=== PATIENT | female | born 1990 | race Caucasian/White ===

== ENCOUNTER 2017-08-25 13:12 | Emergency (ER) | payer SELFPAY ==
[~2017-08-25] VITALS: Ht 157.5 cm; Wt 63.5 kg
[~2017-08-25 13:12] MED LIST: ACHD5005 PO; AMT10T PO; BSP5T PO; CEPH500C PO; CODE-54 PO; IBP800T PO; NAPR-1071 PO; ONDAN4ODT SL; TRM50T PO
--- OUTSIDE RECORDS SUMMARY | 2017-08-25 13:34 | XMS REPORT | Referral Summary ---
Author Author [facility] Organization [facility] Address Unknown Phone Unavailable Care Team Providers Care Plateman Name Role Phone No PCP, Pt States PCP Encounter VC Date(s): 11/05/15 - 11/05/15 [facility] [address] [place], [place] [address] Discharge Diagnosis: Sprain of medial collateral ligament of left knee Discharge Diagnosis: Acute knee pain Discharge Disposition: 01-Home or Self Care Attending Physician: Elvin Squires MD Admitting Physician: Elvin Squires MD Vital Signs Most recent to 1 oldest [Reference Range]: Temperature Oral 37.1 degC [35.8-37.3 degC] (11/05/15 6:11 PM) Peripheral Pulse 90 bpm Rate [60-100 bpm] (11/05/15 7:17 PM) Respiratory Rate 16 br/min [14-20 br/min] (11/05/15 7:17 PM) Systolic Blood 109 mmHg Pressure [90-140 (11/05/15 7:17 PM) mmHg] Diastolic Blood 79 mmHg Pressure [60-90 (11/05/15 6:11 PM) mmHg] SpO2 99 % (11/05/15 7:17 PM) Problem List No Known Problems Allergies, Adverse Reactions, Alerts No Known Allergies Medications ibuprofen 600 mg oral tablet 600 mg 1 tabs, Oral, q8hr, # 30 tabs, 0 Refill(s) Start Date: 11/05/15 Status: Ordered ibuprofen 800 mg oral tablet 800 mg 1 tabs, Oral, TID, as needed for pain, # 30 tabs, 0 Refill(s) Start Date: 09/11/15 Status: Ordered [place] 5 mg-325 mg oral tablet 1 tabs, Oral, q6hr, as needed for pain, # 12 tabs, 0 Refill(s) Start Date: 11/05/15 Status: Ordered Results No data available for this section Immunizations No data available for this section Procedures No data available for this section Social History Social History Type Response Smoking Status Current every day smoker; Type: Cigarettes; Tobacco use per day: 1 Pack Assessment and Plan No data available for this section
--- OUTSIDE RECORDS SUMMARY | 2017-08-25 13:34 | XMS REPORT | Referral Summary ---
Author Author [facility] Organization [facility] Address Unknown Phone Unavailable Care Team Providers Care Web Development Instructor Name Role Phone No PCP, Pt States PCP Encounter VC Date(s): 09/12/15 - 09/12/[address] [facility] [address] [place], [place] [id number] Discharge Diagnosis: Acid reflux Discharge Diagnosis: Chest wall pain Discharge Disposition: 01-Home or Self Care Attending Physician: Elvin Squires MD Admitting Physician: Elvin Squires MD Vital Signs Most recent to 1 oldest [Reference Range]: Temperature Oral 36.0 degC [35.8-37.3 degC] (09/12/15 9:16 AM) Peripheral Pulse 74 bpm Rate [60-100 bpm] (09/12/15 11:14 AM) Respiratory Rate 16 br/min [14-20 br/min] (09/12/15 11:14 AM) Blood Pressure 105/68 mmHg [90-140/60-90 mmHg] (09/12/15 9:16 AM) SpO2 98 % (09/12/15 11:14 AM) Problem List No Known Problems Allergies, Adverse Reactions, Alerts No Known Allergies Medications ibuprofen 800 mg oral tablet 800 mg 1 tabs, Oral, TID, as needed for pain, # 30 tabs, 0 Refill(s) Start Date: 09/11/15 Status: Ordered penicillin V potassium 500 mg oral tablet 500 mg 1 tabs, Oral, QID, X 10 days, # 40 tabs, 0 Refill(s) Start Date: 09/11/15 Stop Date: 09/21/15 Status: Ordered Percocet 7.5/325 oral tablet 1 tabs, Oral, q6hr, # 24 tabs, 0 Refill(s) Start Date: 09/11/15 Stop Date: 09/14/15 Status: Ordered Results Chemistry Most recent to 1 oldest [Reference Range]: Screen, Negative Urine NPT (09/12/15 10:05 AM) Immunizations No data available for this section Procedures No data available for this section Social History No data available for this section Assessment and Plan No data available for this section
--- OUTSIDE RECORDS SUMMARY | 2017-08-25 13:34 | XMS REPORT | Referral Summary ---
Author Author [facility] Organization [facility] Address Unknown Phone Unavailable Care Team Providers Care Nanny Babysitter Name Role Phone No PCP, Pt States PCP Encounter VC Date(s): 11/05/15 - 11/05/15 [facility] [address] [place] [address] [place] Discharge Disposition: Attending Physician: Luis Manuel Villatoro MD Admitting Physician: Luis Manuel Villatoro MD Vital Signs Most recent to 1 oldest [Reference Range]: Temperature Oral 36.8 degC [35.8-37.3 degC] (11/05/15 2:13 PM) Peripheral Pulse 114 bpm Rate [60-100 bpm] *HI* (11/05/15 2:13 PM) Respiratory Rate 20 br/min [14-20 br/min] (11/05/15 2:13 PM) SpO2 98 % (11/05/15 2:13 PM) Problem List No Known Problems Allergies, Adverse Reactions, Alerts No Known Allergies Medications ibuprofen 600 mg oral tablet 600 mg 1 tabs, Oral, q8hr, # 30 tabs, 0 Refill(s) Start Date: 11/05/15 Status: Ordered ibuprofen 800 mg oral tablet 800 mg 1 tabs, Oral, TID, as needed for pain, # 30 tabs, 0 Refill(s) Start Date: 09/11/15 Status: Ordered [place] 5 mg-325 mg oral tablet 1 tabs, [...]
--- OUTSIDE RECORDS SUMMARY | 2017-08-25 13:34 | XMS REPORT | Referral Summary ---
Author Author [facility] Organization [facility] Address Unknown Phone Unavailable Care Team Providers Care Sccm Administrator Name Role Phone No PCP, Pt States PCP Encounter VC Date(s): 09/11/15 - 09/11/15 [facility] [address] [place] [address] [place] [phone] Discharge Diagnosis: Dental abscess Discharge Disposition: 01-Home or Self Care Attending Physician: Luis Manuel Villatoro MD Admitting Physician: Luis Manuel Villatoro MD Vital Signs Most recent to 1 oldest [Reference Range]: Temperature Oral 36.6 degC [35.8-37.3 degC] (09/11/15 1:10 PM) Peripheral Pulse 96 bpm Rate [60-100 bpm] (09/11/15 1:37 PM) Respiratory Rate 22 br/min [14-20 br/min] *HI* (09/11/15 1:37 PM) Blood Pressure 126/88 mmHg [90-140/60-90 mmHg] (09/11/15 1:37 PM) SpO2 98 % (09/11/15 1:37 PM) Problem List No Known Problems Allergies, [...] 09/11/15 Stop Date: 09/14/15 Status: Ordered Results No data available for this section Immunizations No data available for this section Procedures No data available for this section Social History No data available for this section Assessment and Plan No data available for this section
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
[2017-08-25] MEDS ORDERED: NAPR-1071 PO ×2 (14:04→14:07)
[2017-08-25] MEDS ORDERED: AMOX500C2 PO ×2 (14:04→14:07)
--- NOTE | 2017-08-25 14:04 | ED EENT ---
History of Present Illness General Stated Complaint: DENTAL PAIN Source: patient Exam Limitations: no limitations History of Present Illness Time seen by provider: 14:02 Initial Comments To ER with left lower dental pain for 2-3 days. Fevers or chills. She cannot see [facility] until next week she states. Timing/Duration: gradual Severity: moderate Location: dental Associated Symptoms: denies symptoms Allergies and Home Medications Allergies Coded Allergies: No Known Drug Allergies (Unverified , 07/25/10) Home Medications Naproxen 500 Mg Tablet, 500 MG PO BID PRN for PAIN, #20 Ref 0 Prescribed by: BI MARTIN on 04/29/162000 Naproxen 500 Mg Tablet, 500 MG PO BID PRN for PAIN, #20 Prescribed by: DONIS TELLO on 07/24/16 1641 Review of Systems Constitutional: see HPI Eyes: No Symptoms Reported Ears: No Symptoms Reported Nose: no symptoms reported Mouth: see HPI, pain Throat: no symptoms reported Respiratory: no symptoms reported Cardiovascular: no symptoms reported Musculoskeletal: no symptoms reported Past Unuuxcj-Tqhdgn-Sizvwy Hx Patient Social History Recent Foreign Travel: No Contact w/Someone Who Travel: No Recent Hopitalizations: No Seasonal Allergies Seasonal Allergies: No Reproductive System Hx Reproductive Disorders: No Psychosocial Behavioral Health Disorders: Anxiety Family Medical History Significant Family History: No Pertinent Family Hx Physical Exam General Appearance: WD/WN, no apparent distress Eyes: bilateral eye normal inspection, bilateral eye PERRL, bilateral eye EOMI Ears: bilateral ear auricle normal, bilateral ear canal normal, bilateral ear TM normal Mouth/Throat: normal mouth inspection, pharynx normal Neck: non-tender, full range of motion Cardiovascular: regular rate, rhythm Respiratory: normal breath sounds, no respiratory distress, no accessory muscle use Gastrointestinal: normal bowel sounds, non tender Neurologic/Psychiatric: alert, normal mood/affect, oriented x 3 Departure Impression Impression: Primary Impression: Pain, dental Disposition: 01 HOME, SELF-CARE Condition: Stable Departure-Patient Inst. Decision time for Depature: 14:03 Referrals: NO,LOCAL PHYSICIAN (PCP/Family) Primary Care Physician Patient Instructions: Dental Pain Add. Discharge Instructions: 1. Follow-up with the dentist next week 2. Antibiotics and pain medication as directed. You may also use over-the- counter Orajel to help with pain control. Scripts Naproxen (Naprosyn) 500 Mg Tablet 500 MG PO BID Y for PAIN-MODERATE TO SEVERE, #30 TAB Prov: DONIS TELLO APRN 08/25/17 Amoxicillin (Amoxicillin) 500 Mg Capsule 500 MG PO TID, #21 CAP Prov: DONIS TELLO APRN 08/25/17 DONIS TELLO APRN Aug 25, 2017 14:04
[2017-08-25 14:08] VITALS: BP 150/87
[2017-08-25] MEDS ORDERED: LIDOCAINE 2% VISCOUS 15 ML UDC PO ONE (14:15)
== END 2017-08-25 14:15 | disposition home or self-care (01) ==
LOC: EDUNIT# 13:12 → ER 13:13
DX: K08.89 Other specified disorders of teeth and supporting structures (principal); F41.9 Anxiety disorder, unspecified
CPT/HCPCS: 99282

== ENCOUNTER 2017-11-28 15:17 | Emergency (ER) | payer SELFPAY ==
[~2017-11-28] VITALS: Ht 157.5 cm; Wt 70.3 kg
[~2017-11-28 15:17] MED LIST changes: +AMOX500C2 PO
[2017-11-28] MEDS ORDERED: SULF1TAB35 PO (15:37)
[2017-11-28] MEDS ORDERED: HYDR-757 PO (15:37)
--- NOTE | 2017-11-28 15:37 | ED Integumentary General ---
General Chief Complaint: Skin/Wound Problems Stated Complaint: LEFT PINKY FINGER INFECTION Source: patient Exam Limitations: no limitations History of Present Illness Date Seen by Provider: Nov 28, 2017 Time Seen by Provider: 15:32 Initial Comments To ER per private vehicle with reports of a left fifth finger infection 5 days. No known injury. She states she was just seen [facility] this earlier today and was given a prescription was going about $30 and could not afford it and came here instead Timing/Duration: week, getting worse Severity: moderate Allergies and Home Medications Allergies Coded Allergies: No Known Drug Allergies (Unverified , 07/25/10) Home Medications Amoxicillin 500 Mg Capsule, 500 MG PO TID . Prescribed by: DONIS TELLO on 08/25/17 140 Naproxen 500 Mg Tablet, 500 MG PO BID PRN for PAIN Prescribed by: BI MARTIN on 04/29/162000 Naproxen 500 Mg Tablet, 500 MG PO BID PRN for PAIN Prescribed by: DONIS TELLO on 07/24/16 164 Naproxen 500 Mg Tablet, 500 MG PO BID PRN for PAIN-MODERATE TO SEVERE . Prescribed by: DONIS TELLO on 08/25/17 140 Patient Home Medication List Home Medication List Reviewed: Yes Constitutional: see HPI, No chills, No fever EENTM: see HPI Respiratory: no symptoms reported Cardiovascular: no symptoms reported Genitourinary: no symptoms reported Musculoskeletal: no symptoms reported Skin: no symptoms reported Past Ctodokj-Fahiok-Agurfr Hx Patient Social History Alcohol Use: Denies Use Recreational Drug Use: Yes (THC) Smoking Status: Current Everyday Smoker Type Used: Cigarettes 2nd Hand Smoke Exposure: Yes Recent Foreign Travel: No Contact w/Someone Who Travel: No Recent Hopitalizations: No Immunizations Up To Date Tetanus Booster (TDap): More than 5yrs Seasonal Allergies Seasonal Allergies: No Past Medical History Surgeries: Yes (DENTAL) Respiratory: No Cardiac: No Neurological: No Reproductive Disorders: No Genitourinary: No Gastrointestinal: No Musculoskeletal: No Endocrine: No HEENT: No Cancer: No Psychosocial: Yes Anxiety Integumentary: No Blood Disorders: No Family Medical History No Pertinent Family Hx Physical Exam Vital Signs Capillary Refill : General Appearance: WD/WN, no apparent distress HEENT: PERRL/EOMI, normal ENT inspection Extremities: normal range of motion, other (paronychia left fifth finger without cellulitis) Neurologic/Psychiatric: alert, normal mood/affect Skin: warm/dry Procedures/Interventions I&D : Blade Size: 11 Progress Anesthetized with a digital block using 5 mL of 2% lidocaine without epinephrine. A 1 cm incision was made over the area of maximal fluctuance and a large amount of purulent material expressed. Culture collected sent to lab. Departure Impression Primary Impression: Paronychia Disposition: 01 HOME, SELF-CARE Condition: Improved Departure-Patient Inst. Decision time for Depature: 15:34 Referrals: NO,LOCAL PHYSICIAN (PCP/Family) Primary Care Physician Patient Instructions: Paronychia (DC) Add. Discharge Instructions: 1. You may remove the dressing tomorrow. Wash this daily starting tomorrow with soap and water. Return to ER for any worsening redness or swelling. Pain medication and antibiotics as directed. All discharge instructions reviewed with patient and/or family. Voiced understanding. Scripts Hydrocodone/Acetaminophen (Gridley 5-325 Tablet) 1 Each Tablet 1 EACH PO Q4H Y for PAIN-MODERATE, #10 TAB Do not fill unless bactrim DS is also filled. Prov: DONIS TELLO APRN 11/28/17 Sulfamethoxazole/Trimethoprim (Bactrim Ds Tablet) 1 Each Tablet 1 EACH PO BID, #20 TAB Prov: DONIS TELLO APRN 11/28/17 DONIS TELLO APRN Nov 28, 2017 15:37
[2017-11-28 15:40] VITALS: BP 135/83
== END 2017-11-28 15:40 | disposition home or self-care (01) ==
LOC: EDUNIT# 15:17 → ER 15:19
DX: L03.012 Cellulitis of left finger (principal); F12.10 Cannabis abuse, uncomplicated; F17.210 Nicotine dependence, cigarettes, uncomplicated
CPT/HCPCS: 87070; 87077; 87186; 87205

== ENCOUNTER 2018-03-25 22:25 | Emergency (ER) | payer SELFPAY ==
[~2018-03-25 22:25] MED LIST changes: +HYDR-757 PO; +SULF1TAB35 PO
[2018-03-26] MEDS ORDERED: AMOX-358 PO (00:01)
[2018-03-26] MEDS ORDERED: MUPI1OIN6 TP (00:01)
== END 2018-03-25 22:31 | disposition left against medical advice (07) ==
LOC: EDUNIT# 22:25 → ER 22:27
DX: T14.90XA Injury, unspecified, initial encounter (principal); W54.0XXA Bitten by dog, initial encounter

== ENCOUNTER 2018-03-25 22:50 | Emergency (ER) | payer SELFPAY ==
[~2018-03-25] VITALS: Ht 157.5 cm; Wt 59.0 kg
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
[2018-03-25] MEDS ORDERED: AUGMENTIN 875 MG TAB (AMOXICILLIN/CLAVULANATE) PO SCH (23:45)
[2018-03-25] MEDS ORDERED: TETANUS,DIPTH,PERTUSS P/F (BOOSTRIX) 0.5 ML VIAL IM ONE (23:45)
[2018-03-25] MEDS ORDERED: MUPIROCIN 2% OINT 22 GM (BACTROBAN) TUBE ONE (23:52)
[2018-03-26] MEDS ORDERED: AMOX-358 PO (00:01)
[2018-03-26] MEDS ORDERED: MUPI1OIN6 TP (00:01)
[2018-03-26 00:10] LABS: AMPHETAMINE SCREEN, URINE POSITIVE (NEGATIVE); BARBITURATE SCREEN URINE NEGATIVE (NEGATIVE); BENZODIAZEPINES SCREEN URINE NEGATIVE (NEGATIVE); CANNABINOID SCREEN, URINE NEGATIVE (NEGATIVE); COCAINE SCREEN URINE NEGATIVE (NEGATIVE); METHADONE STAT NEGATIVE (NEGATIVE); METHAMPHETAMINE SCREEN URINE S NEGATIVE (NEGATIVE); OPIATE SCREEN URINE NEGATIVE (NEGATIVE); OXYCODONE STAT NEGATIVE (NEGATIVE); PROPOXYPHENE STAT NEGATIVE (NEGATIVE); TRICYCLIC ANTIDEPRESSANTS SCRE NEGATIVE (NEGATIVE)
[2018-03-26 00:13] VITALS: BP 115/68
[2018-03-26] MEDS ORDERED: MUPIROCIN 2% OINT 22 GM (BACTROBAN) TUBE TOP SCH (09:00)
== END 2018-03-26 00:13 | disposition home or self-care (01) ==
LOC: EDUNIT# 22:50 → ER 22:51
DX: S41.131A Puncture wound without foreign body of right upper arm, initial encounter (principal); S51.811A Laceration without foreign body of right forearm, initial encounter; S80.211A Abrasion, right knee, initial encounter; S61.236A Puncture wound without foreign body of right little finger without damage to nail, initial encounter; F41.9 Anxiety disorder, unspecified; F17.210 Nicotine dependence, cigarettes, uncomplicated; Z23 Encounter for immunization; W54.0XXA Bitten by dog, initial encounter
CPT/HCPCS: 80306; 84703; 90471; 90715; 99284

== ENCOUNTER 2018-07-24 15:03 | Emergency (ER) | payer SELFPAY ==
[~2018-07-24] VITALS: Ht 157.5 cm; Wt 65.8 kg
[~2018-07-24 15:03] MED LIST changes: +AMOX-358 PO; +HYDR-4226 PO; -HYDR-757 PO; +MUPI1OIN6 TP
[2018-07-24] MEDS ORDERED: CLINDAMYCIN 150 MG (CLEOCIN) CAP PO ONE (15:45)
[2018-07-24] MEDS ORDERED: AMOX500C2 PO (15:55)
--- NOTE | 2018-07-24 15:55 | ED EENT ---
History of Present Illness General Chief Complaint: Dental Problems/Pain Stated Complaint: TOOTHACHE Nursing Triage Note: AMBULATED TO ROOM 06 VIA AMB TO ROOM 06. COMPLAINS OF AN ABSCESSED TOOTH LEFT LOWER SIDE SINCE YESTERDAY. STATES THIS TOOTH HAS HAD AN ABSCESS BEFORE. Source: patient Exam Limitations: no limitations History of Present Illness Date Seen by Provider: Jul 24, 2018 Time Seen by Provider: 15:25 Initial Comments This 28-year-old young lady presents to the emergency room with complaint of a dental abscess on the lateral edge of the left lower teeth. She first noticed the symptoms last night. She states it has been draining some already. She took ibuprofen 800 mg and has been using Orajel. She has not taken any ibuprofen since pourer crane ladle. [facility] dental [facility] for her dental care but has not contacted the dentist yet about this issue. She has some severely eroded molars in the left lower mouth contributing to this problem. She denies fevers and is afebrile at present. Allergies and Home Medications Allergies Coded Allergies: No Known Drug Allergies (Unverified , 07/25/10) Home Medications Amoxicillin 500 Mg Capsule, 1,000 MG PO BID Prescribed by: CARMEN ZAMORA on 07/24/18 3095 Patient Home Medication List Home Medication List Reviewed: Yes Review of Systems Review of Systems Constitutional: no symptoms reported Eyes: No Symptoms Reported Ears: No Symptoms Reported Nose: no symptoms reported Mouth: see HPI Throat: no symptoms reported Respiratory: no symptoms reported Cardiovascular: no symptoms reported Gastrointestinal: no symptoms reported : No LMP: Jul 17, 2018 Musculoskeletal: no symptoms reported Skin: no symptoms reported Neurological: No Symptoms Reported Hematologic/Lymphatic: No Symptoms Reported Past Zexokcj-Ahfvbe-Mzgcpb Hx Past Med/Social Hx: Reviewed Nursing Past Med/Soc Hx Patient Social History Drug of Choice: NYIRJUANA Type Used: Cigarettes 2nd Hand Smoke Exposure: Yes Recent Foreign Travel: No Contact w/Someone Who Travel: No Recent Infectious Disease Expo: No Recent Hopitalizations: No Immunizations Up To Date Tetanus Booster (TDap): More than 5yrs Seasonal Allergies Seasonal Allergies: No Past Medical History Surgeries: Yes (DENTAL) Respiratory: No Cardiac: No Neurological: No Reproductive Disorders: No Genitourinary: No Gastrointestinal: No Musculoskeletal: No Endocrine: No HEENT: No Cancer: No Psychosocial: Yes Anxiety Integumentary: No Blood Disorders: No Family Medical History No Pertinent Family Hx Physical Exam Vital Signs Vital Signs - First Documented 07/24/18 15:17 Temp 98.0 Pulse 111 Resp 16 B/P (MAP) 126/91 (103) Pulse Ox 100 O2 Delivery Room Air Height, Weight, BMI Height: 5'2.00" Weight: 145lbs. oz. 65.333959rp; 29.26 BMI Method:Stated General Appearance: WD/WN, no apparent distress Eyes: bilateral eye normal inspection, bilateral eye PERRL, bilateral eye EOMI Ears: bilateral ear auricle normal, bilateral ear canal normal, bilateral ear TM red Nose: normal inspection Mouth/Throat: pharynx normal, dental tenderness, other (Severely eroded molars in the left lower mouth. Large abscess lateral to the left lower molars with a white head.) Neck: normal inspection Cardiovascular: no edema, no murmur, tachycardia Respiratory: lungs clear, normal breath sounds, no respiratory distress, no accessory muscle use Neurologic/Psychiatric: staffing associate II-XII nml as tested, no motor/sensory deficits, alert, normal mood/affect, oriented x 3 Skin: normal color, warm/dry Procedures/Interventions I&D : Blade Size: 11 Progress Topical anesthetic was used to numb the skin of the gingiva overlying the abscess. Hurricaine spray was applied to gauze pads to accomplish topical anesthesia. A number 11 scalpel was then used to make a subcentimeter incision over the center of the abscess. The large amount of thick purulent drainage was expressed. Suction with a Karimi catheter was provided to remove pus and debris. Wound was irrigated with 60 mL sterile water. A culture was collected. Patient tolerated the procedure well. Progress/Results/Core Measures Results/Orders My Orders Orders - CARMEN KAISER MD Wound Culture (07/24/18 15:34) Clindamycin Capsule (Cleocin Capsule) (07/24/18 15:45) Ibuprofen Tablet (Motrin Tablet) (07/24/18 16:00) Medications Given in ED Current Medications Medications Dose Ordered Sig/[place] Route Start Time Stop Time Status Last Admin Dose Admin Clindamycin HCl 450 mg ONCE ONCE PO 07/24/18 15:45 07/24/18 15:46 DC 07/24/18 15:53 450 MG Ibuprofen 800 mg ONCE ONCE PO 07/24/18 16:00 07/24/18 16:01 DC 07/24/18 16:02 800 MG Vital Signs/I&O 07/24/18 07/24/18 15:17 16:02 Temp 98.0 98.0 Pulse 111 111 Resp 16 16 B/P (MAP) 126/91 (103) 126/91 (103) Pulse Ox 100 100 O2 Delivery Room Air Blood Pressure Mean: 103 Progress Progress Note : Progress Note Incision and drainage of the abscess was performed. Wound culture was obtained. Patient was given clindamycin 450 mg and ibuprofen prior to dismissal. Departure Impression Primary Impression: Dental abscess Additional Impression: Encounter for incision and drainage procedure Disposition: HOME, SELF-CARE Condition: Improved Departure-Patient Inst. Decision time for Depature: 15:45 Referrals: [facility] [place] ([place]P/Family) Primary Care Physician Patient Instructions: Tooth Abscess (DC) Add. Discharge Instructions: Start your antibiotics immediately and complete the entire course. Please follow-up with your dentist as soon as possible. Call today to schedule an appointment. Extraction of the tooth remnant is necessary to prevent recurrence of abscess. Rinse your mouth with water often. [place] your teeth gently with a soft bristle brush 2 or 3 times daily. Use antiseptic mouthwash such as Listerine once or twice daily as tolerated. Return to care if you have worsening symptoms, especially if you develop fevers over 100. For pain use ibuprofen up to 800 mg every 8 hours as needed. Add Tylenol (acetaminophen) up to 1000 mg every 6 hours as needed for additional pain relief. All discharge instructions reviewed with patient and/or family. Voiced understanding. Scripts Amoxicillin (Amoxicillin) 500 Mg Capsule 1000 MG PO BID, #40 CAP Prov: CARMEN KAISER MD 07/24/18 Copy Copies To 1: DEMETRIA TAVAREZ JOSHUA T MD Jul 24, 2018 15:55
[2018-07-24] MEDS ORDERED: IBUPROFEN 800 MG (MOTRIN) TAB PO ONE (16:00)
[2018-07-24 16:02] VITALS: BP 126/91
== END 2018-07-24 16:02 | disposition home or self-care (01) ==
LOC: EDUNIT# 15:03 → ER 15:05
DX: K04.7 Periapical abscess without sinus (principal); F41.9 Anxiety disorder, unspecified; F12.10 Cannabis abuse, uncomplicated; Z77.22 Contact with and (suspected) exposure to environmental tobacco smoke (acute) (chronic)
CPT/HCPCS: 87070; 87205; 99283

== ENCOUNTER 2018-08-25 09:44 | Emergency (ER) | payer SELFPAY ==
[~2018-08-25] VITALS: Ht 157.5 cm; Wt 68.0 kg
--- NOTE | 2018-08-25 11:13 | ED Lower Extremity ---
General Chief Complaint: Lower Extremity Stated Complaint: R KNEE DISLOCATED Nursing Triage Note: PT AMBULATED TO ROOM 10 WITH COMPLANT OF RIGHT KNEE PAIN. PT STATE SHE TORE A LIGAMENT IN KNEE A FEW YEARS AGO, BUT DID NOT HAVE SURGERY. STATES SHE FEELS HER KNEE WILL DISLOCATE WHEN WALKING. Nursing Sepsis Screen: No Definite Risk Source: patient Exam Limitations: no limitations History of Present Illness Date Seen by Provider: Aug 25, 2018 Time Seen by Provider: 11:13 Initial Comments Patient is a 28-year-old female who presents to the emergency room with complaints of right knee pain. She reports that 5 years ago she tore a ligament in the knee and was supposed to have surgery but decided not to have the surgery. She reports that she has a feelings like her knee dislocating when she walks. She denies reinjury. She reports that she has an appointment on 08/29/18 with Sami Zapata for evaluation and possible referral to orthopedic surgeon but it is becoming difficult to ambulate and she would like a knee brace and crutches. Onset: other (5 years ago) Pain/Injury Location: right knee Method of Injury: unknown Modifying Factors: Improves With Immobilization; Worse With Movement Allergies and Home Medications Allergies Coded Allergies: No Known Drug Allergies (Unverified , 07/25/10) Home Medications Amoxicillin 500 Mg Capsule, 1,000 MG PO BID Prescribed by: CARMEN ZAMORA on 07/24/18 9897 Patient Home Medication List Home Medication List Reviewed: Yes Review of Systems Constitutional: see HPI; No chills, No fever Musculoskeletal: see HPI, joint pain (right knee pain) All Other Systems Reviewed Negative Unless Noted: Yes Past Ipresxd-Vwilyq-Zzsosy Hx Past Med/Social Hx: Reviewed Nursing Past Med/Soc Hx Patient Social History Alcohol Use: Denies Use Recreational Drug Use: No Drug of Choice: MAIRJUANA Smoking Status: Current Everyday Smoker Type Used: Cigarettes 2nd Hand Smoke Exposure: Yes Recent Foreign Travel: No Contact w/Someone Who Travel: No Recent Infectious Disease Expo: No Recent Hopitalizations: No Immunizations Up To Date Tetanus Booster (TDap): More than 5yrs Seasonal Allergies Seasonal Allergies: No Past Medical History Surgeries: Yes (DENTAL) Respiratory: No Cardiac: No Neurological: No Reproductive Disorders: No Genitourinary: No Gastrointestinal: No Musculoskeletal: No Endocrine: No HEENT: No Cancer: No Psychosocial: Yes Anxiety Integumentary: No Blood Disorders: No Family Medical History Reviewed Nursing Family Hx No Pertinent Family Hx Physical Exam Vital Signs Vital Signs - First Documented 08/25/18 10:24 Pulse 88 Resp 20 B/P (MAP) 132/102 (112) Pulse Ox 98 O2 Delivery Room Air Capillary Refill : Less Than 3 Seconds Height, Weight, BMI Height: 5'2.00" Weight: 150lbs. oz. 68.133659nc; 29.26 BMI Method:Stated General Appearance: WD/WN, no apparent distress HEENT: PERRL/EOMI, normal ENT inspection, TMs normal, pharynx normal Cardiovascular: normal peripheral pulses, regular rate, rhythm, no edema, no gallop, no JVD, no murmur Respiratory: chest non-tender, lungs clear, normal breath sounds, no respiratory distress, no accessory muscle use Knees: right knee normal range of motion (increased pain with range of motion) , right knee pain, right knee soft tissue tenderness Neurologic/Tendon: normal sensation, normal motor functions, normal tendon functions, responds to pain, no evidence tendon injury Neurologic/Psychiatric: alert, normal mood/affect, oriented x 3 Skin: normal color, warm/dry Normal capillary refill and distal pulses present. Progress/Results/Core Measures Results/Orders Vital Signs/I&O 08/25/18 10:24 Pulse 88 Resp 20 B/P (MAP) 132/102 (112) Pulse Ox 98 O2 Delivery Room Air Blood Pressure Mean: 112 Urine -Bedside: Negative Progress Progress Note : Time: 12:00 Progress Note I have seen and evaluated the patient. I've informed her of her imaging studies. I will be placing her in a knee immobilizer and crutches until she follows up. I will also refer her to Dr. Mendoza for orthopedic follow-up. She agrees with plans of care, plans were discharged, return precautions were given. Diagnostic Imaging Diagonstic Imaging: Xray Plain Films/CT/US/NM/MRI: knee Comments NAME: EDMUND NAVARRETE Fouzia MED REC#: [id number] PT STATUS: REG ER : 1990 PHYSICIAN: GRIFFIN PARRISH MD ADMIT DATE: 08/25/18/ER Draft Date of Exam:08/25/18 KNEE, RIGHT, 3 VIEWS EXAM: KNEE, RIGHT, 3 VIEWS. INDICATION: Right knee pain. Injury a few years ago. COMPARISON: None. FINDINGS: No fracture or malalignment. No suspicious osteoblastic or lytic lesions. Soft tissue shadows are unremarkable. IMPRESSION: Negative right knee radiographs. Dictated on workstation # [id number] Dict: 08/25/18 1155 Trans: 08/25/18 1156 [id number] Interpreted by: ALANA ENNIS MD Electronically signed by: Reviewed: Reviewed by Me Departure Impression Primary Impression: Knee pain Qualified Codes: M25.561 - Pain in right knee Disposition: 01 HOME, SELF-CARE Condition: Stable/Unchanged Departure-Patient Inst. Decision time for Depature: 12:01 Referrals: [facility] [place]) Primary Care Physician ILYA MENDOZA MD Patient Instructions: Chronic Knee Pain (DC) Add. Discharge Instructions: You may use ibuprofen and Tylenol as directed by the bottle for pain relief. Wear the knee immobilizer and use the crutches as needed for comfort until you follow up with your primary care provider on 08/29/18. I've also provided the contact information for Dr. Mendoza I believe that she should follow up with him as well for orthopedic evaluation. Call first thing 08/27/17 for an appointment time. Return back to the emergency room for any worsening symptoms or concerns as needed. All discharge instructions reviewed with patient and/or family. Voiced understanding. KONSTANTIN ALMENDAREZ Aug 25, 2018 11:13
--- NOTE | 2018-08-25 11:57 | Diagnostic Imaging Report ---
EXAM: KNEE, RIGHT, 3 VIEWS. INDICATION: Right knee pain. Injury a few years ago. COMPARISON: None. FINDINGS: No fracture or malalignment. No suspicious osteoblastic or lytic lesions. Soft tissue shadows are unremarkable. IMPRESSION: Negative right knee radiographs. Dictated by: Dictated on workstation # [id number]
[2018-08-25 12:33] VITALS: BP 129/91
== END 2018-08-25 12:33 | disposition home or self-care (01) ==
LOC: EDUNIT# 09:44 → ER 09:45
DX: M25.561 Pain in right knee (principal); F41.9 Anxiety disorder, unspecified; F12.10 Cannabis abuse, uncomplicated; F17.210 Nicotine dependence, cigarettes, uncomplicated
CPT/HCPCS: 73562; 84703

== ENCOUNTER 2018-09-15 02:28 | Emergency (ER) | payer SELFPAY ==
[~2018-09-15] VITALS: Ht 157.5 cm; Wt 68.0 kg
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
[2018-09-15] MEDS ORDERED: AUGMENTIN 500 MG TAB (AMOXICILLIN/CLAVULANATE) PO ONE (03:45)
[2018-09-15] MEDS ORDERED: TRIM/SULFAMETH 160/800 (SEPTRA DS) TAB PO ONE (03:45)
[2018-09-15] MEDS ORDERED: SULF1TAB35 PO (03:47)
[2018-09-15] MEDS ORDERED: AMOX-355 PO (03:47)
[2018-09-15 04:06] VITALS: BP 123/93
--- NOTE | 2018-09-15 04:10 | NUR ---
Dr. Guzman applied triple antibiotic ointment and bandaid to right thigh bite.
== END 2018-09-15 04:06 | disposition home or self-care (01) ==
LOC: EDUNIT# 02:28 → ER 02:32
DX: S71.111A Laceration without foreign body, right thigh, initial encounter (principal); F12.10 Cannabis abuse, uncomplicated; Z77.22 Contact with and (suspected) exposure to environmental tobacco smoke (acute) (chronic); W54.0XXA Bitten by dog, initial encounter
CPT/HCPCS: 99283

== ENCOUNTER 2019-02-21 21:48 | Inpatient (IN) | payer SELFPAY ==
[~2019-02-21] VITALS: Ht 157.5 cm; Wt 68.0 kg
[~2019-02-21 21:48] MED LIST changes: +AMOX-355 PO
[2019-02-21] MEDS ORDERED: ceFAZolin 2 GM IV Premixed 50 ML IV STA (21:56)
[2019-02-21] MEDS ORDERED: NS IV 1000 ML 1,000 ML IV ONE ×2 (21:56→23:31)
[2019-02-21] MEDS ORDERED: TETANUS,DIPTH,PERTUSS P/F (BOOSTRIX) 0.5 ML VIAL IM ONE (22:00)
[2019-02-21 22:06] LABS: HEMOGLOBIN 12.2 G/DL (11.5-16.0); MEAN PLATELET VOLUME 9.3 FL (7.4-10.4); RED CELL DISTRIBUTION WIDTH 12.6 % (10.0-14.5); WHITE BLOOD COUNT 11.2 10^3/uL (4.3-11.0)
[2019-02-21] MEDS ORDERED: NS 100 ML (IVPB) BAG IV ONE (22:15)
[2019-02-21] MEDS ORDERED: HOLD METFORMIN - RECEIVED CONTRAST 20 ML VIAL IV SCH (22:15)
[2019-02-21] MEDS ORDERED: IOHEXOL 350 MG/ML 100 ML (OMNIPAQUE 350) VIAL IV ONE (22:15)
[2019-02-21 22:26] LABS: ALANINE AMINOTRANSFERASE 13 U/L (0-55); ALBUMIN 3.9 GM/DL (3.2-4.5); ALKALINE PHOSPHATASE 58 U/L (40-136); BILIRUBIN,DIRECT 0.1 MG/DL (0.0-0.3); BILIRUBIN,INDIRECT 0.3 MG/DL; BILIRUBIN,TOTAL 0.4 MG/DL (0.1-1.0); BUN/CREATININE RATIO 12; CALCIUM 8.4 MG/DL (8.5-10.1); CARBON DIOXIDE 17 MMOL/L (21-32); CHLORIDE 110 MMOL/L (98-107); CREATININE SERUM 1.07 MG/DL (0.60-1.30); GFR ESTIMATED > 60; GLUCOSE 110 MG/DL (70-105); POTASSIUM 4.9 MMOL/L (3.6-5.0); SODIUM 140 MMOL/L (135-145); TOTAL PROTEIN 6.4 GM/DL (6.4-8.2)
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
[2019-02-21] MEDS ORDERED: ceFAZolin INJECTION 2,000 MG ONE (22:35)
[2019-02-21] MEDS ORDERED: NS (IVPB) 50 ML ONE (22:35)
[2019-02-21] MEDS ORDERED: fentaNYL INJECTION 100 MCG/2 ML AMP IVP STA (23:10)
--- NOTE | 2019-02-21 23:14 | NUR ---
C-collar cleared by Dr. Hunter @ [id number]
[2019-02-21] MEDS ORDERED: LIDOCAINE/EPI 2% 1:100,00 (XYLOCAINE) 20 ML VIAL INJ ONE ×3 (23:30)
[2019-02-21] MEDS ORDERED: fentaNYL INJECTION 100 MCG/2 ML AMP IVP ONE (23:45)
[2019-02-21] MEDS ORDERED: morphine INJ 10 MG/ML 1ML (SYR OR VIAL) IVP STA (23:53)
[2019-02-22] VITALS (23 sets, daily range): BP systolic 100–143; BP diastolic 59–120
--- NOTE | 2019-02-22 00:45 | NUR ---
Grossly contaminated material to lt complex laceration irrigated with approx x200ml ns and chlorhexidine soultion. Residual foreign material embedded in tissue. Wet to dry dressing applied and covered with kerlix gauze. Pt able to move extremity and dorsiflex lt foot. Distal pulses palpable and cap refil <3 seconds.
[2019-02-22 01:57] LABS: BILIRUBIN,URINE NEGATIVE (NEGATIVE); CLARITY,URINE CLEAR; COLOR,URINE YELLOW; GLUCOSE, URINE (UA) NEGATIVE (NEGATIVE); KETONES,URINE 2+ (NEGATIVE); LEUKOCYTE ESTERASE ,URINE NEGATIVE (NEGATIVE); NITRITE,URINE NEGATIVE (NEGATIVE); PH,URINE 6.5 (5-9); PROTEIN,URINE 1+ (NEGATIVE); UROBILINOGEN,URINE NORMAL (NORMAL)
[2019-02-22 02:06] LABS: BACTERIA,URINE NEGATIVE /HPF
[2019-02-22 02:10] LABS: AMPHETAMINE SCREEN, URINE POSITIVE (NEGATIVE); BARBITURATE SCREEN URINE NEGATIVE (NEGATIVE); BENZODIAZEPINES SCREEN URINE NEGATIVE (NEGATIVE); CANNABINOID SCREEN, URINE POSITIVE (NEGATIVE); COCAINE SCREEN URINE NEGATIVE (NEGATIVE); METHADONE STAT NEGATIVE (NEGATIVE); METHAMPHETAMINE SCREEN URINE S POSITIVE (NEGATIVE); OPIATE SCREEN URINE POSITIVE (NEGATIVE); OXYCODONE STAT NEGATIVE (NEGATIVE); PROPOXYPHENE STAT NEGATIVE (NEGATIVE); TRICYCLIC ANTIDEPRESSANTS SCRE NEGATIVE (NEGATIVE)
[2019-02-22] MEDS ORDERED: fentaNYL INJECTION 100 MCG/2 ML AMP ONE ×4 (02:38→12:29)
[2019-02-22] MEDS: fentaNYL INJECTION 100 MCG/2 ML AMP IV PRN ×2 (02:45→08:31)
[2019-02-22] MEDS ORDERED: NS (IVPB) 50 ML ONE (05:47)
[2019-02-22] MEDS ORDERED: ceFAZolin INJECTION 2,000 MG ONE (05:47)
[2019-02-22] MEDS: ceFAZolin 2 GM/NS 50 ML IVPB IV SCH ×3 (06:02→15:59)
[2019-02-22] MEDS: D5 1/2 NS W/KCL 20 MEQ/L 1,000 ML IV SCH ×3 (06:02→23:09)
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
--- NOTE | 2019-02-22 06:59 | Diagnostic Imaging Report ---
Indication: Left leg injury pain COMPARISON: None. FINDINGS: 4 views left tibia-fibula demonstrates a large soft tissue injury adjacent to the distal tibia. There is no underlying fracture or dislocation. No foreign body. IMPRESSION: No fracture or dislocation. Dictated by: Dictated on workstation # [id number]
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
--- NOTE | 2019-02-22 07:42 | Diagnostic Imaging Report ---
INDICATION: Left foot injury, pain COMPARISON: None. FINDINGS: 2 views left foot demonstrates no fracture or dislocation. Articular surfaces are normal. No radiopaque foreign body. IMPRESSION: Negative left foot. Dictated by: Dictated on workstation # [id number]
--- NOTE | 2019-02-22 09:15 | NUR ---
Dr. Stein at bedside at this time. Information provided to family and pt at bedside regarding surgical procedure and debridement of left lower extremity. Mother at bedside at this time. VSS. Will obtain consent for surgical procedure. Pt currently awaiting surgery at this time.
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
[2019-02-22] MEDS ORDERED: morphine INJ 4 MG/ML 1 ML (VIAL/SYRINGE) IVP PRN (09:30)
[2019-02-22] MEDS ORDERED: morphine INJ 4 MG/ML 1 ML (VIAL/SYRINGE) ONE (09:31)
[2019-02-22] MEDS ORDERED: ceFAZolin INJECTION 1,000 MG ONE (09:32)
--- NOTE | 2019-02-22 09:58 | NUR ---
Report called to JOSE Perry who will assume pt care on arrival to 4th floor room 419. Pt currently awaiting surgery at this time and will report to new room post op. Will continue to monitor pt until OR crew arrives.
[2019-02-22] MEDS ORDERED: HYDROmorphone 2 MG/ML VIAL (DILAUDID) ONE (11:25)
[2019-02-22] MEDS ORDERED: morphine INJ 10 MG/ML 1ML (SYR OR VIAL) ONE (11:25)
[2019-02-22] MEDS ORDERED: PROMETHAZINE INJ 25 MG/ML (PHENERGAN) AMP ONE (11:26)
[2019-02-22] MEDS ORDERED: MIDAZOLAM 2 MG/2 ML (VERSED) VIAL ONE (12:29)
--- NOTE | 2019-02-22 12:31 | NUR ---
Pt taken to OR accompanied by OR staff at this time.
[2019-02-22] MEDS: LACTATED RINGERS 1,000 ML IV PRN ×2 (12:37→13:15)
[2019-02-22] MEDS ORDERED: SEVOFLURANE (ULTANE) 15 ML INHAL SOLN ONE (13:14)
[2019-02-22] MEDS ORDERED: ONDANSETRON 4 MG/2 ML (SDV) Z0FRAN ONE (13:15)
[2019-02-22] MEDS ORDERED: LIDOCAINE PF 2% 5 ML (XYLOCAINE) VIAL ONE (13:15)
[2019-02-22] MEDS ORDERED: DEXAMETHASONE 10 MG/ML (DECADRON) 1 ML VIAL ONE (13:15)
[2019-02-22] MEDS ORDERED: proPOfol 200 MG/20 ML (DIPRIVAN) VIAL IV ONE (13:15)
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
[2019-02-22] MEDS ORDERED: ONDANSETRON 4 MG/2 ML (SDV) Z0FRAN IVP PRN (13:45)
[2019-02-22] MEDS ORDERED: HYDROmorphone 2 MG/ML VIAL (DILAUDID) IV ONE (13:45)
[2019-02-22] MEDS ORDERED: PROMETHAZINE INJ 25 MG/ML (PHENERGAN) AMP IVP ONE (13:45)
[2019-02-22] MEDS ORDERED: morphine INJ 10 MG/ML 1ML (SYR OR VIAL) IVP ONE (13:45)
--- NOTE | 2019-02-22 14:30 | NUR ---
Pt to room 419 from PACU, pt very sleepy. L) lower leg had dressing that is c/d/i. Report received from Smitha GARCIA
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
[2019-02-22] MEDS: HYDROcodone/APAP 10 MG/325 MG (LORTAB) TAB PO PRN (21:14)
[2019-02-23] MEDS: D5 1/2 NS W/KCL 20 MEQ/L 1,000 ML IV SCH ×2 (00:30→05:51)
[2019-02-23 00:59] VITALS: BP 102/66
[2019-02-23 01:05] VITALS: BP 130/66
[2019-02-23] MEDS: HYDROcodone/APAP 10 MG/325 MG (LORTAB) TAB PO PRN ×3 (04:33→13:08)
[2019-02-23 05:35] LABS: BASOPHILS % (AUTO) 0 % (0-10); EOSINOPHILS # (AUTO) 0.1 10^3/uL (0.0-0.3); EOSINOPHILS % (AUTO) 0 % (0-10); HEMATOCRIT 32 % (35-52); HEMOGLOBIN 10.7 G/DL (11.5-16.0); LYMPHOCYTES # (AUTO) 1.5 X 10^3 (1.0-4.0); LYMPHOCYTES % (AUTO) 8 % (12-44); MEAN CORPUSCULAR HEMOGLOBIN 33 PG (25-34); MEAN CORPUSCULAR HGB CONC 34 G/DL (32-36); MEAN CORPUSCULAR VOLUME 97 FL (80-99); MEAN PLATELET VOLUME 10.1 FL (7.4-10.4); MONOCYTES # (AUTO) 1.4 X 10^3 (0.0-1.0); MONOCYTES % (AUTO) 8 % (0-12); NEUTROPHILS # (AUTO) 15.2 X 10^3 (1.8-7.8); NEUTROPHILS % (AUTO) 84 % (42-75); PLATELET COUNT 272 10^3/uL (130-400); RED CELL DISTRIBUTION WIDTH 12.3 % (10.0-14.5); WHITE BLOOD COUNT 18.2 10^3/uL (4.3-11.0)
[2019-02-23 05:56] LABS: ALANINE AMINOTRANSFERASE 8 U/L (0-55); ALBUMIN 3.2 GM/DL (3.2-4.5); ALKALINE PHOSPHATASE 53 U/L (40-136); BILIRUBIN,TOTAL 0.2 MG/DL (0.1-1.0); BUN/CREATININE RATIO 10; CALCIUM 8.1 MG/DL (8.5-10.1); CARBON DIOXIDE 22 MMOL/L (21-32); CHLORIDE 109 MMOL/L (98-107); CREATININE SERUM 0.78 MG/DL (0.60-1.30); GFR ESTIMATED > 60; GLUCOSE 136 MG/DL (70-105); MAGNESIUM 1.9 MG/DL (1.8-2.4); PHOSPHORUS 2.5 MG/DL (2.3-4.7); POTASSIUM 4.4 MMOL/L (3.6-5.0); SODIUM 137 MMOL/L (135-145); TOTAL PROTEIN 5.3 GM/DL (6.4-8.2)
[2019-02-23] MEDS ORDERED: IBUP-2055 PO (12:18)
--- NOTE | 2019-02-23 12:19 | Anesthesia-General Post-Op ---
General Patient Condition Mental Status/LOC: Same as Preop Cardiovascular: Satisfactory Nausea/Vomiting: Absent Respiratory: Satisfactory Pain: Controlled Complications: Absent Post Op Complications Complications None Follow Up Care/Instructions Patient Instructions None needed. Anesthesia/Patient Condition Patient Condition Patient is doing well, no complaints, stable vital signs, no apparent adverse anesthesia problems. No complications reported per nursing. MIKE OJEDA CRNA Feb 23, 2019 12:19
--- NOTE | 2019-02-23 12:43 | NUR ---
SPOKE WITH PATIENT, WELL LOOKING AT THE EXTERNAL MED HISTORY. SHE SAYS THERE ARE NO PRESCRIPTION MEDICATIONS SHE TAKES (SAMPLES, OR MAILORDER) OTC MEDICATIONS: IBUPROFEN 800MG TID PRN
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
[2019-02-23] MEDS ORDERED: HYDR-3820 PO (13:10)
--- NOTE | 2019-02-23 13:12 | Discharge Inst-Surgical ---
Discharge Inst-Surgical Depart Medication/Instructions New, Converted or Re-Newed RX: RX Given to Pt/Family Patient Instructions Follow up Appt: Make appointment for 1 week. [phone] Instructions: No strenuous activity. May shower in 24 hours, no tub bath or soaking. Use incentive spirometer at home as directed. No Smoking Skin/Wound Care: Please come in to office to have bandages changed Saturday and Saturday. You need to leave the ramon in place; will be removed in 10-14 days. Symptoms to Report: Appetite Changes, Extremity Discoloration, Numbness/Tingling, Swelling Increased, Bleeding Excessive, Eyesight Changes, Pain Increased, Urine Color Change, Constipation(Persistent), Fever over 101 degree F, Pain/Pressure in chest, Urinating Difficulty, Cough Up/Vomit Blood, Heart Beat Irreg/Pounding, Pain/Pressure in jaw, Cramps in feet or legs, Lightheadedness, Pain/Pressure in shoulder, Diarrhea(Persistent), Memory Changes Suddenly, Questions/Concerns, Weight gain consecutive days, Dizziness/Fainting, Nausea/Vomiting, Shortness of Breath, Weight gain over 2 pounds If questions or concerns contact your physician Or seek help at emergency department. Activity Activity as Tolerated: Yes Walking Assistive Device: Crutches Driving Instructions: No Driving/Refer to Dr. Koch Discharge Diet: No Restrictions Diet After 24 Hours: Clear Liquid if Nauseous If Any Problems/Questions/Issu: Contact Your Physician, Go to Emergency Room Skin/Wound Care Infection Signs and Symptoms: Increased Redness, Foul Odor of Wound, Increased Drainage, Skin Itchy or Has a Rash, Increased Swelling, Temperature Above 101 F Bathing Instructions: Shower Stitches/[place]ermabond Dis: Care of JOSE Darnell DO Feb 23, 2019 13:12
== END 2019-02-23 14:00 | disposition home or self-care (01) | DRG 909 ==
LOC: EDUNIT# 21:48 → ER 21:49 → ICU 21:50 → UNDOADMOB 23:45 → OBSVTOIN 02-22 12:22 → INTOOBSV 02-22 12:22 → 4TH 02-22 12:31 → ICU 02-22 12:31 → UNDODISIN 02-23 14:00
PROVIDERS: ADMIT Surgery; ATTEND Surgery
PROC: 0JDP0ZZ Extraction of Left Lower Leg Subcutaneous Tissue and Fascia, Open Approach (ICD-10-PCS; 2019-02-22)
PROC: 0JQ00ZZ Repair Scalp Subcutaneous Tissue and Fascia, Open Approach (ICD-10-PCS; 2019-02-22)
PROC: 0JQP0ZZ Repair Left Lower Leg Subcutaneous Tissue and Fascia, Open Approach (ICD-10-PCS; principal; 2019-02-22 12:37)
DX: S81.822A Laceration with foreign body, left lower leg, initial encounter (principal); S01.01XA Laceration without foreign body of scalp, initial encounter; F17.210 Nicotine dependence, cigarettes, uncomplicated; F15.90 Other stimulant use, unspecified, uncomplicated; F12.90 Cannabis use, unspecified, uncomplicated; K02.9 Dental caries, unspecified; V13.4XXA Pedal cycle driver injured in collision with car, pick-up truck or van in traffic accident, initial encounter
CPT/HCPCS: 36415; 70450; 71045; 71260; 72125; 72128; 72131; 72170; 73590; 73630; 74177; 80048; 80053; 80076; 80306; 80320; 81000; 83735; 84100; 84703; 85025; 85027; 86850; 86900; 86901; 87081; G0378

== ENCOUNTER 2019-03-02 15:56 | Emergency (ER) | payer OTHER ==
[~2019-03-02 15:56] MED LIST changes: +HYDR-3820 PO; +IBUP-2055 PO
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
[2019-03-02 16:14] VITALS: BP 0/0
== END 2019-03-02 16:14 | disposition home or self-care (01) ==
LOC: EDUNIT# 15:56 → ER 15:59
DX: S01.91XD Laceration without foreign body of unspecified part of head, subsequent encounter (principal); R40.2412 Glasgow coma scale score 13-15, at arrival to emergency department; W54.0XXD Bitten by dog, subsequent encounter

== ENCOUNTER 2019-03-05 15:58 | Inpatient (IN) | payer OTHER ==
[~2019-03-05] VITALS: Ht 157.5 cm; Wt 63.7 kg
--- NOTE | 2019-03-05 16:10 | NUR ---
old dressing removed from left lower leg. [place] intact to wound. There is purelent drainage present. Wound bed is eschar with foul smell present.
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
[2019-03-05] MEDS ORDERED: fentaNYL INJECTION 100 MCG/2 ML AMP IVP ONE (16:30)
--- NOTE | 2019-03-05 16:35 | NUR ---
23 ramon removed from patient's left lower leg by Kade Webb NP.
[2019-03-05 16:37] LABS: BASOPHILS # (AUTO) 0.1 10^3/uL (0.0-0.1); BASOPHILS % (AUTO) 1 % (0-10); EOSINOPHILS # (AUTO) 0.3 10^3/uL (0.0-0.3); EOSINOPHILS % (AUTO) 3 % (0-10); HEMATOCRIT 34 % (35-52); HEMOGLOBIN 11.3 G/DL (11.5-16.0); LYMPHOCYTES # (AUTO) 2.3 X 10^3 (1.0-4.0); LYMPHOCYTES % (AUTO) 25 % (12-44); MEAN CORPUSCULAR HEMOGLOBIN 32 PG (25-34); MEAN CORPUSCULAR HGB CONC 34 G/DL (32-36); MEAN CORPUSCULAR VOLUME 95 FL (80-99); MEAN PLATELET VOLUME 8.6 FL (7.4-10.4); MONOCYTES # (AUTO) 0.6 X 10^3 (0.0-1.0); MONOCYTES % (AUTO) 6 % (0-12); NEUTROPHILS # (AUTO) 6.1 X 10^3 (1.8-7.8); NEUTROPHILS % (AUTO) 66 % (42-75); PLATELET COUNT 508 10^3/uL (130-400); RED CELL DISTRIBUTION WIDTH 12.3 % (10.0-14.5); WHITE BLOOD COUNT 9.3 10^3/uL (4.3-11.0)
[2019-03-05] MEDS ORDERED: ONDANSETRON 4 MG/2 ML (SDV) Z0FRAN IVP ONE (16:45)
[2019-03-05 16:56] LABS: ALANINE AMINOTRANSFERASE 7 U/L (0-55); ALBUMIN 3.8 GM/DL (3.2-4.5); ALKALINE PHOSPHATASE 80 U/L (40-136); BILIRUBIN,TOTAL 0.5 MG/DL (0.1-1.0); BUN/CREATININE RATIO 13; CARBON DIOXIDE 27 MMOL/L (21-32); CHLORIDE 104 MMOL/L (98-107); CREATININE SERUM 0.91 MG/DL (0.60-1.30); GFR ESTIMATED > 60; GLUCOSE 94 MG/DL (70-105); SODIUM 138 MMOL/L (135-145); TOTAL PROTEIN 6.7 GM/DL (6.4-8.2)
--- NOTE | 2019-03-05 17:00 | NUR ---
Patient states her pain is competely gone after fentanyl given. Family member at bedside. Ice water provided. Patient denies any other needs at this time.
[2019-03-05] MEDS ORDERED: PIPERACILLIN/TAZOBACTAM (BULK) 4.5 GM in NS (IVPB) 100 ML IV ONE (17:15)
[2019-03-05] MEDS ORDERED: LACTATED RINGERS 1,000 ML IV SCH (18:00)
--- NOTE | 2019-03-05 18:50 | NUR ---
REC'D PER WC FROM ER. ALERT AND ORIENTED, WOUND MANAGER BIOSTATISTICS WITH NO DRAINAGE NOTED. BLACK ESCHAR. IV INFUSING LT AC. ORIENTED TO ROOM. ASSESSMENT TO BE DONE BY ONCOMING RN.
[2019-03-05 19:14] VITALS: BP 116/55
[2019-03-05] MEDS ORDERED: ONDANSETRON 4 MG/2 ML (SDV) Z0FRAN IV PRN (19:15)
[2019-03-05] MEDS ORDERED: ACETAMINOPHEN 325 MG TABLET PO PRN (19:15)
[2019-03-05] MEDS ORDERED: VANCOMYCIN 1250 MG/NS 250 ML IVPB IV NR ×2 (19:15)
[2019-03-05] MEDS ORDERED: CATHETER FLUSH 10 ML SYR IV PRN (19:15)
[2019-03-05] MEDS ORDERED: IBUPROFEN 600 MG (MOTRIN) TAB PO PRN (19:15)
[2019-03-05 19:16] VITALS: BP 116/55
[2019-03-05] MEDS: LACTATED RINGERS 1,000 ML IV SCH (20:56)
[2019-03-05] MEDS: DAKIN'S 1/2 STRENGTH (0.25%) 473 ML BTL TOP SCH (21:35)
[2019-03-05] MEDS ORDERED: diphenhydrAMINE 25 MG TAB (BENADRYL) PO PRN (22:15)
[2019-03-06] VITALS (14 sets, daily range): BP systolic 88–109; BP diastolic 47–80
[2019-03-06] MEDS: PIPERACILLIN/TAZO 4.5 GM/NS 100 ML IV SCH ×6 (00:06→15:54)
[2019-03-06] MEDS: LACTATED RINGERS 1,000 ML IV SCH ×3 (01:57→22:02)
[2019-03-06] MEDS: VANCOMYCIN 1 GM/NS 250 ML IVPB IV SCH ×4 (06:35→19:00)
[2019-03-06] MEDS ORDERED: fentaNYL INJECTION 100 MCG/2 ML AMP IVP NR (08:15)
[2019-03-06] MEDS: DAKIN'S 1/2 STRENGTH (0.25%) 473 ML BTL TOP SCH (09:05)
[2019-03-06] MEDS ORDERED: DOXY100C2 PO (09:50)
[2019-03-06] MEDS ORDERED: HYDR-3820 PO (09:50)
--- NOTE | 2019-03-06 09:51 | NUR ---
PATIENT ASLEEP AT THIS TIME, I SPOKE WITH FAMILY IN ROOM. SHE VERIFIED THE PATIENT IS ONLY TAKING THE 2 MEDICATIONS RECENTLY PRESCRIBED BY DR. AGUERO. I ADDED THEM TO THE MED REC FROM THE EXT MED HX.
[2019-03-06] MEDS ORDERED: proPOfol 200 MG/20 ML (DIPRIVAN) VIAL IV ONE (10:10)
[2019-03-06] MEDS ORDERED: SEVOFLURANE (ULTANE) 15 ML INHAL SOLN ONE ×3 (10:10→13:01)
[2019-03-06] MEDS ORDERED: LIDOCAINE PF 2% 5 ML (XYLOCAINE) VIAL ONE (10:10)
[2019-03-06] MEDS ORDERED: MIDAZOLAM 2 MG/2 ML (VERSED) VIAL ONE (10:13)
[2019-03-06] MEDS ORDERED: fentaNYL INJECTION 100 MCG/2 ML AMP ONE (10:13)
[2019-03-06] MEDS ORDERED: BUP/EPI 0.5% 1:200,000 (SENSORCAINE) 30 ML VIAL ONE (10:21)
[2019-03-06 10:34] LABS: AMPHETAMINE SCREEN, URINE POSITIVE (NEGATIVE); BARBITURATE SCREEN URINE NEGATIVE (NEGATIVE); BENZODIAZEPINES SCREEN URINE NEGATIVE (NEGATIVE); CANNABINOID SCREEN, URINE POSITIVE (NEGATIVE); COCAINE SCREEN URINE NEGATIVE (NEGATIVE); METHADONE STAT NEGATIVE (NEGATIVE); METHAMPHETAMINE SCREEN URINE S NEGATIVE (NEGATIVE); OPIATE SCREEN URINE NEGATIVE (NEGATIVE); OXYCODONE STAT NEGATIVE (NEGATIVE); PROPOXYPHENE STAT NEGATIVE (NEGATIVE); TRICYCLIC ANTIDEPRESSANTS SCRE NEGATIVE (NEGATIVE)
--- NOTE | 2019-03-06 12:09 | NUR ---
PT TAKEN OFF FLOOR FOR PROCEDURE AT THIS TIME.
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
[2019-03-06] MEDS: LACTATED RINGERS 1,000 ML IV PRN ×2 (12:25→12:55)
[2019-03-06] MEDS ORDERED: morphine INJ 10 MG/ML 1ML (SYR OR VIAL) IVP ONE (12:30)
[2019-03-06] MEDS ORDERED: ONDANSETRON 4 MG/2 ML (SDV) Z0FRAN IVP PRN (12:30)
[2019-03-06] MEDS ORDERED: DEXAMETHASONE 10 MG/ML (DECADRON) 1 ML VIAL ONE (12:30)
[2019-03-06] MEDS ORDERED: HYDROmorphone 2 MG/ML VIAL (DILAUDID) IV ONE (12:30)
[2019-03-06] MEDS ORDERED: DAKIN'S 1/4 STRENGTH (0.125%) 473 ML BTL TOP STA (12:47)
--- NOTE | 2019-03-06 13:13 | Progress Note-Post Operative ---
Post-Operative Progess Note Surgeon (s)/Feed Adviser (s) Surgeon PITA MENCHACA DO Feed Adviser: NA Pre-Operative Diagnosis LEFT LOWER EXT WOUND Post-Operative Diagnosis SAME Procedure & Operative Findings Date of Procedure 03/06/19 Procedure Performed/Findings SHARP EXCISIONAL DEBRIDEMENT LEFT LOWER EXT SKIN AND SUBCUTANEOUS TISSUE 12.5X 10 CM Anesthesia Type GEN Estimated Blood Loss Estimated blood loss (mL): MIN Specimens/Packing Specimens Removed CULTURE PITA MENCHACA DO Mar 06, 2019 13:13
--- NOTE | 2019-03-06 13:55 | Anesthesia-General Post-Op ---
General Patient Condition Mental Status/LOC: Same as Preop Cardiovascular: Satisfactory Nausea/Vomiting: Absent Respiratory: Satisfactory Pain: Controlled Complications: Absent Post Op Complications Complications None Follow Up Care/Instructions Patient Instructions None needed. Anesthesia/Patient Condition Patient Condition Patient is doing well, no complaints, stable vital signs, no apparent adverse anesthesia problems. No complications reported per nursing. ELSY DE PAZ CRNA Mar 06, 2019 13:55
--- NOTE | 2019-03-06 14:15 | NUR ---
PT BACK TO FLOOR AT THIS TIME. PT IS DROWSY BUT ALERT TO VOICE. REPORTS PAIN 10/10. WILL GIVE PAIN MEDICINE ONCE DIET IS VERIFIED WITH ONLY PO PAIN MEDICATION ORDERED AT THIS TIME. VS OBTAINED. FAMILY IS AT BEDSIDE. SCD IN PLACE TO RIGHT LEG. X4 SIDE RAILS UP. CALL LIGHT WITHIN REACH.
--- NOTE | 2019-03-06 15:22 | NUR ---
DR MENCHACA GAVE ORDERS FOR REGULAR DIET.
[2019-03-06] MEDS: HYDROcodone/APAP 5 MG/325 MG (LORTAB) TAB PO PRN ×2 (15:51→20:34)
[2019-03-07] MEDS: PIPERACILLIN/TAZO 4.5 GM/NS 100 ML IV SCH ×4 (00:24→09:31)
[2019-03-07] MEDS: HYDROcodone/APAP 5 MG/325 MG (LORTAB) TAB PO PRN ×3 (00:25→10:41)
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
[2019-03-07 04:00] VITALS: BP 108/67
[2019-03-07] MEDS: LACTATED RINGERS 1,000 ML IV SCH (04:29)
[2019-03-07 04:47] LABS: BASOPHILS % (AUTO) 0 % (0-10); EOSINOPHILS % (AUTO) 0 % (0-10); HEMATOCRIT 30 % (35-52); HEMOGLOBIN 9.8 G/DL (11.5-16.0); LYMPHOCYTES # (AUTO) 1.4 X 10^3 (1.0-4.0); LYMPHOCYTES % (AUTO) 10 % (12-44); MEAN CORPUSCULAR HEMOGLOBIN 32 PG (25-34); MEAN CORPUSCULAR HGB CONC 33 G/DL (32-36); MEAN CORPUSCULAR VOLUME 96 FL (80-99); MEAN PLATELET VOLUME 9.1 FL (7.4-10.4); MONOCYTES # (AUTO) 0.7 X 10^3 (0.0-1.0); MONOCYTES % (AUTO) 5 % (0-12); NEUTROPHILS # (AUTO) 12.1 X 10^3 (1.8-7.8); NEUTROPHILS % (AUTO) 86 % (42-75); PLATELET COUNT 492 10^3/uL (130-400); WHITE BLOOD COUNT 14.2 10^3/uL (4.3-11.0)
[2019-03-07 05:11] LABS: BUN/CREATININE RATIO 11; CALCIUM 8.4 MG/DL (8.5-10.1); CARBON DIOXIDE 26 MMOL/L (21-32); CHLORIDE 104 MMOL/L (98-107); CREATININE SERUM 0.88 MG/DL (0.60-1.30); GFR ESTIMATED > 60; GLUCOSE 127 MG/DL (70-105); POTASSIUM 4.2 MMOL/L (3.6-5.0); SODIUM 138 MMOL/L (135-145)
[2019-03-07] MEDS ORDERED: TROUGH ORDER-PHARMACY XX NR (06:30)
[2019-03-07 07:28] VITALS: BP_SYST 100; BP_SYST 81; BP_DIAS 50; BP_DIAS 68
[2019-03-07] MEDS: VANCOMYCIN 1 GM/NS 250 ML IVPB IV SCH ×2 (07:51)
[2019-03-07] MEDS: DAKIN'S 1/2 STRENGTH (0.25%) 473 ML BTL TOP SCH (09:31)
--- NOTE | 2019-03-07 10:30 | NUR ---
DR YUEN HERE TO SEE PT. DR YUEN GAVE ORDERS FOR DRESSING CHANGES BID WITH ADAPTIC, 4X4 GAUZE SOAKED IN DAKINS COVERED WITH ABD PAD AND WRAPPED WITH KERLEX. DRESSING APPLIED AND INSTRUCTIONS GIVEN TO PT FAMILY WHO WILL BE DOING THE DRESSINGS UNTIL F/U WITH DR YUEN OFFICE NEXT WEEK FOR DRESSING CHANGES. PT FAMILY MEMBER VERBALIZED UNDERSTANDING OF DRESSING CHANGES AND TO NOT APPLY DAKINS SOLUTION TO ANY AREA EXCEPT THE WOUND. SUPPLIES GIVEN TO PT.
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
[2019-03-07 11:53] VITALS: BP 100/61
--- NOTE | 2019-03-07 12:56 | Anesthesia-General Post-Op ---
General Patient Condition Mental Status/LOC: Same as Preop Cardiovascular: Satisfactory Nausea/Vomiting: Absent Respiratory: Satisfactory Pain: Controlled Complications: Absent Post Op Complications Complications None Follow Up Care/Instructions Patient Instructions None needed. Anesthesia/Patient Condition Patient Condition Patient is doing well, no complaints, stable vital signs, no apparent adverse anesthesia problems. No complications reported per nursing. MIKE OJEDA CRNA Mar 07, 2019 12:56
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
[2019-03-07] MEDS ORDERED: CLIN300C11 PO (14:18)
--- NOTE | 2019-03-07 14:19 | Discharge Instructions ---
Discharge Inst-[facility] Discharge Medications New, Converted or Re-Newed RX: Transmitted to Pharmacy New Medications: Clindamycin HCl (Clindamycin HCl) 300 Mg Capsule 300 MG PO BID for 10 Days, #20 CAP Patient Instructions Goal/Follow Up Appt: [address] Stein Needs to establish with PCP Patient Instructions: - Wound care per surgery - Make sure to complete full course of antibiotics Activity & Diet Discharge Diet: No Restrictions Activity as Tolerated: Yes LAI ARGUELLES MD Mar 07, 2019 14:19
--- NOTE | 2019-03-07 14:56 | Progress Note - Surgery ---
Subjective Date Seen by a Provider: Mar 07, 2019 Time Seen by a Provider: 12:37 Subjective/Events-last exam patient doing okay. She states her leg feels a little bit better. Patient will go home. She denies any nausea vomiting or sweats chills shortness breath or chest pain. Focused Exam Lactate Level 03/05/19 16:25: Lactic Acid Level 0.78 Objective Exam Vital Signs Date Time Temp Pulse Resp B/P (MAP) Pulse Ox O2 Delivery O2 Flow Rate FiO2 03/07/19 12:30 85 03/07/19 11:54 Room Air 0.00 03/07/19 11:53 98.6 83 18 100/61 (74) 98 Room Air 03/07/19 08:00 99 Room Air 03/07/19 07:28 98.1 80 18 100/68 (79) 99 Room Air 03/07/19 07:00 77 03/07/19 04:00 98.2 78 16 108/67 (81) 98 Room Air 03/07/19 01:00 100 03/06/19 23:16 98.3 80 16 102/56 (71) 97 Room Air 03/06/19 22:27 Nasal Cannula 1.50 03/06/19 20:00 99 Room Air 03/06/19 19:29 98.1 71 18 101/61 (74) 96 Room Air 03/06/19 19:00 72 03/06/19 16:18 97.8 63 16 94/56 (69) 96 Room Air I & O 03/07/19 07:00 Intake Total 4600 ml Output Total 250 ml Balance 4350 ml Capillary Refill : Less Than 3 SecondsLess Than 3 Seconds General Appearance: No Apparent Distress HEENT: PERRL/EOMI Neck: Normal Inspection Respiratory: Chest Non Tender, No Accessory Muscle Use, No Respiratory Distress Cardiovascular: Regular Rate, Rhythm Gastrointestinal: non tender, soft; No guarding Extremity: Non Tender, Other (left lower extremity wound clean no worsening of infection) Neurologic/Psychiatric: Alert, Oriented x3 Skin: Normal Color, Warm/Dry Results Lab Laboratory Tests 03/07/19 04:30: White Blood Count 14.2H, Red Blood Count 3.11L, Hemoglobin 9.8L, Hematocrit 30L, Mean Corpuscular Volume 96, Mean Corpuscular Hemoglobin 32, Mean Corpuscular Hemoglobin Concent 33, Red Cell Distribution Width 12.0, Platelet Count 492H, Mean Platelet Volume 9.1, Neutrophils (%) (Auto) 86H, Lymphocytes (%) (Auto) 10L , Monocytes (%) (Auto) 5, Eosinophils (%) (Auto) 0, Basophils (%) (Auto) 0, Neutrophils # (Auto) 12.1H, Lymphocytes # (Auto) 1.4, Monocytes # (Auto) 0.7, Eosinophils # (Auto) 0.0, Basophils # (Auto) 0.0, Sodium Level 138, Potassium Level 4.2, Chloride Level 104, Carbon Dioxide Level 26, Anion Gap 8, Blood Urea Nitrogen 10, Creatinine 0.88, Estimat Glomerular Filtration Rate > 60, BUN/Creatinine Ratio 11, Glucose Level 127H, Calcium Level 8.4L, Vancomycin Level Trough 11.0 Microbiology 03/05/19 Blood Culture - Preliminary, Resulted No growth 03/06/19 Gram Stain - Final, Resulted 03/06/19 Anaerobic Culture, Resulted Pending 03/06/19 Surgical Culture, Resulted Pending Assessment/Plan Assessment/Plan Assessment/Plan left lower extremity wound surrounding erythema/cellulitis left lower ext eschar/necrotic tissue status post debridement of skin and subcutaneous tissue continue wound care Likely need skin graft in the near future Okay to [facility] Clinical Quality Measures DVT/VTE Risk/Contraindication: Risk Factor Score Per Nursin RFS Level Per Nursing on Admit: 2=Moderate PITA MENCHACA DO Mar 07, 2019 14:56
[2019-03-07 15:20] VITALS: BP 100/61
== END 2019-03-07 15:30 | disposition home or self-care (01) | DRG 572 ==
LOC: EDUNIT# 15:58 → ER 15:59 → 4TH 17:44
PROVIDERS: ADMIT Family Medicine; ATTEND Family Medicine
PROC: 0JBP0ZZ Excision of Left Lower Leg Subcutaneous Tissue and Fascia, Open Approach (ICD-10-PCS; principal; 2019-03-06 12:25)
DX: L03.116 Cellulitis of left lower limb (principal); S81.802S Unspecified open wound, left lower leg, sequela; F17.210 Nicotine dependence, cigarettes, uncomplicated; F15.90 Other stimulant use, unspecified, uncomplicated; F41.9 Anxiety disorder, unspecified; K02.9 Dental caries, unspecified; V00-Y99 External causes of morbidity
CPT/HCPCS: 36415; 80048; 80053; 80202; 80306; 83605; 84703; 85025; 87040; 87070; 87075; 87077; 87081; 87186; 87205; 96365; 96375

== ENCOUNTER 2019-03-09 14:45 | Emergency (ER) | payer OTHER ==
[~2019-03-09] VITALS: Ht 157.5 cm; Wt 63.5 kg
[~2019-03-09 14:45] MED LIST changes: +CLIN300C11 PO; +DOXY100C2 PO
[2019-03-09] MEDS ORDERED: MUPIROCIN 2% OINT 22 GM (BACTROBAN) TUBE ONE (15:08)
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
[2019-03-09 15:23] VITALS: BP 116/76
[2019-03-09] MEDS ORDERED: MUPIROCIN 2% OINT 22 GM (BACTROBAN) TUBE TOP SCH (21:00)
== END 2019-03-09 15:23 | disposition home or self-care (01) ==
LOC: EDUNIT# 14:45 → ER 14:46
DX: S81.802D Unspecified open wound, left lower leg, subsequent encounter (principal); J45.909 Unspecified asthma, uncomplicated; F41.9 Anxiety disorder, unspecified; F15.10 Other stimulant abuse, uncomplicated; F12.10 Cannabis abuse, uncomplicated; F17.210 Nicotine dependence, cigarettes, uncomplicated; V13.9XXD Unspecified pedal cyclist injured in collision with car, pick-up truck or van in traffic accident, subsequent encounter

== ENCOUNTER → 2019-03-16 | Outpatient (CLI) | payer OTHER | LOC: WOUNDCARE 14:25 | PROVIDERS: ATTEND Surgery | DX: L97.222 Non-pressure chronic ulcer of left calf with fat layer exposed (principal); S81.812A Laceration without foreign body, left lower leg, initial encounter; I96 Gangrene, not elsewhere classified | CPT/HCPCS: 99213 ==

== ENCOUNTER 2020-12-27 09:03 | Emergency (ER) | payer SELFPAY ==
[~2020-12-27] VITALS: Ht 157.4 cm; Wt 72.7 kg
[~2020-12-27 09:03] MED LIST changes: +ACHYD1T PO; -CLIN300C11 PO; +CLIN300C12 PO; -HYDR-3820 PO; -IBUP-2055 PO; +IBUP-2473 PO
[2020-12-27 10:25] VITALS: BP 125/87
== END 2020-12-27 10:24 | disposition left against medical advice (07) ==
LOC: EDUNIT# 09:03 → ER 09:05
DX: K04.7 Periapical abscess without sinus (principal)
CPT/HCPCS: 99282

== ENCOUNTER 2021-03-09 13:44 | Emergency (ER) | payer SELFPAY ==
[~2021-03-09] VITALS: Ht 154.4 cm; Wt 77.1 kg
[~2021-03-09 13:44] MED LIST changes: -SULF1TAB35 PO; +SULF1TAB38 PO
[2021-03-09] MEDS ORDERED: KETOROLAC 30 MG/ML VIAL IM ONE (14:00)
[2021-03-09] MEDS ORDERED: KETOROLAC 30 MG/ML VIAL ONE (14:01)
--- NOTE | 2021-03-09 14:04 | ED Cough/URI ---
General Chief Complaint: Cough/Cold/Flu Symptoms Stated Complaint: LOSS OF TASTE, CHILLS, COUGH History of Present Illness Date Seen by Provider: Mar 09, 2021 Time Seen by Provider: 13:52 Initial Comments Patient is a 30-year-old female who presents to the emergency department today with a chief complaint of headache, runny nose, sore throat, loss of taste and smell, cough. Patient states she has had loss of taste and smell for about a week and the rest of her symptoms developed over the course of the last 2 to 3 days. Patient has not been tested for Covid, she is not Covid vaccinated. Patient states she does smoke cigarettes. She denies urinary complaints, diarrhea. No rashes joint pain or swelling. Patient states that she has tried ibuprofen for her headache. She took 4 tablets approximately 2 hours ago. No relief of symptoms. All other review of systems reviewed and negative except as stated. Timing/Duration: week, getting worse Severity/Quality: dry cough Prior Episodes/Possible Cause: illness exposure Modifying Factors: Worse With Coughing Associated Symptoms: cough, nasal congestion, sore throat Allergies and Home Medications Allergies Coded Allergies: No Known Drug Allergies (Unverified , 07/25/10) Home Medications Clindamycin HCl 300 Mg Capsule, 300 MG PO BID Prescribed by: LAI ARGUELLES on 03/07/19 1418 Patient Home Medication List Home Medication List Reviewed: Yes Review of Systems Review of Systems Constitutional: see HPI, chills, fever, malaise EENTM: throat pain Respiratory: cough Cardiovascular: no symptoms reported Gastrointestinal: abdominal pain Genitourinary: no symptoms reported : No Musculoskeletal: no symptoms reported Skin: no symptoms reported Psychiatric/Neurological: Headache All Other Systems Reviewed Negative Unless Noted: Yes Past Przzhzx-Ibsumd-Sshesq Hx Immunizations Up To Date Tetanus Booster (TDap): Less than 5yrs PED Vaccines UTD: No Seasonal Allergies Seasonal Allergies: No Past Medical History Surgeries: Yes (wound washout left lower ext) Respiratory: Yes (REPORTS ASTHMA) Asthma Currently Using CPAP: No Currently Using BIPAP: No Cardiac: No Neurological: No Reproductive Disorders: No Genitourinary: No Gastrointestinal: No Musculoskeletal: No Endocrine: No HEENT: No Loss of Vision: Denies Cancer: No Psychosocial: No Anxiety Integumentary: No Blood Disorders: No Adverse Reaction/Blood Tranf: No Family Medical History No Pertinent Family Hx, Diabetes, Hypertension Physical Exam Vital Signs - First Documented 03/09/21 03/09/21 13:55 14:05 Temp 35.3 Pulse 100 Resp 20 B/P (MAP) 114/84 (94) Pulse Ox 96 O2 Delivery Room Air Capillary Refill : Height: 5'2.00" Weight: 140lbs. 6.0oz. 63.502156az; 29.00 BMI Method:Actual General Appearance: WD/WN, no apparent distress HEENT: PERRL/EOMI Neck: full range of motion, supple, normal inspection Respiratory: lungs clear, normal breath sounds, no respiratory distress, no accessory muscle use Cardiovascular: regular rate, rhythm Gastrointestinal: soft, tenderness (Mild periumbilical tenderness and very mild right lower quadrant abdominal tenderness) Extremities: non-tender, normal inspection, no pedal edema, no calf tenderness, normal capillary refill Neurologic/Psychiatric: alert, normal mood/affect, oriented x 3 Skin: normal color, warm/dry Progress/Results/Core Measures Suspected Sepsis SIRS Temperature: Pulse: Respiratory Rate: Blood Pressure / Mean: Results/Orders Lab Results Laboratory Tests Test 03/09/21 14:01 Range/Units SARS-CoV-2 RNA (RT-PCR) Detected H Not Detecte My Orders Orders - RAOUL BAKER MD Covid 19 Inhouse Test (03/09/21 14:00) Ketorolac Injection (Toradol Injection) (03/09/21 14:00) Ketorolac Injection (Toradol Injection) (03/09/21 14:01) Vital Signs/I&O 03/09/21 03/09/21 03/09/21 13:55 14:05 14:53 Temp 35.3 35.3 Pulse 100 92 Resp 20 20 B/P (MAP) 114/84 (94) 120/75 (94) Pulse Ox 96 96 O2 Delivery Room Air Room Air Capillary Refill : Departure Impression Primary Impression: COVID-19 Disposition: 07 AGAINST MEDICAL ADVICE Condition: Stable Departure-Patient Inst. Referrals: [facility] (PCP/Family) Primary Care Physician RAOUL BAKER MD Mar 09, 2021 14:04
[2021-03-09 14:53] VITALS: BP 120/75
== END 2021-03-09 14:53 | disposition left against medical advice (07) ==
LOC: EDUNIT# 13:44 → ER 13:46
DX: U07.1 COVID-19 (principal); J45.909 Unspecified asthma, uncomplicated; F17.210 Nicotine dependence, cigarettes, uncomplicated
CPT/HCPCS: 87636; 99284

== ENCOUNTER 2021-03-16 01:49 | Emergency (ER) | payer SELFPAY ==
[~2021-03-16] VITALS: Ht 157 cm; Wt 74.8 kg
[2021-03-16 02:43] VITALS: BP 118/71
[2021-03-16 03:03] LABS: BILIRUBIN,URINE NEGATIVE (NEGATIVE); CLARITY,URINE CLOUDY; COLOR,URINE RED; GLUCOSE, URINE (UA) NEGATIVE (NEGATIVE); KETONES,URINE TRACE (NEGATIVE); LEUKOCYTE ESTERASE ,URINE 1+ (NEGATIVE); NITRITE,URINE POSITIVE (NEGATIVE); PROTEIN,URINE 3+ (NEGATIVE)
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
[2021-03-16 03:16] LABS: AMPHETAMINE SCREEN, URINE NEGATIVE (NEGATIVE); BACTERIA,URINE MODERATE /HPF; BARBITURATE SCREEN URINE NEGATIVE (NEGATIVE); BENZODIAZEPINES SCREEN URINE NEGATIVE (NEGATIVE); CANNABINOID SCREEN, URINE POSITIVE (NEGATIVE); COCAINE SCREEN URINE NEGATIVE (NEGATIVE); METHADONE STAT NEGATIVE (NEGATIVE); METHAMPHETAMINE SCREEN URINE S POSITIVE (NEGATIVE); OPIATE SCREEN URINE NEGATIVE (NEGATIVE); OXYCODONE STAT NEGATIVE (NEGATIVE); PROPOXYPHENE STAT NEGATIVE (NEGATIVE); RBC,URINE >100 /HPF; TRICYCLIC ANTIDEPRESSANTS SCRE NEGATIVE (NEGATIVE); WBC,URINE >100 /HPF
[2021-03-16 03:17] LABS: AMORPHOUS SEDIMENT,UR FEW AMOR URATES /LPF; CALCIUM OXALATE CRYSTALS,UR FEW /LPF
[2021-03-16] MEDS ORDERED: MUPI22OI2 TP (03:20)
[2021-03-16] MEDS ORDERED: DOXY100T2 PO (03:20)
[2021-03-16] MEDS ORDERED: RX-MUPIROCIN (BACTROBAN) 2% OINT 22 GM TUBE TOP STA (03:25)
[2021-03-16] MEDS ORDERED: RX-DOXYCYCLINE 100 MG (VIBRAMYCIN) TAB PPK#2 PO STA (03:25)
== END 2021-03-16 03:45 | disposition home or self-care (01) ==
LOC: EDUNIT# 01:49 → ER 01:53
DX: S31.41XA Laceration without foreign body of vagina and vulva, initial encounter (principal); U07.1 COVID-19; N39.0 Urinary tract infection, site not specified; F17.210 Nicotine dependence, cigarettes, uncomplicated
CPT/HCPCS: 80306; 81000; 84703; 87077; 87088; 99283

== ENCOUNTER 2021-03-25 01:22 | Emergency (ER) | payer SELFPAY ==
[~2021-03-25] VITALS: Ht 158 cm; Wt 77.0 kg
[~2021-03-25 01:22] MED LIST changes: +DOXY100T2 PO; +MUPI22OI2 TP
[2021-03-25 01:45] VITALS: BP 117/83
[2021-03-25] MEDS ORDERED: TETANUS & DIPHTHERIA TOX,ADULT 0.5 ML (TENIVAC) IM ONE (01:48)
[2021-03-25] MEDS ORDERED: LIDOCAINE PF 2% 5 ML (XYLOCAINE) VIAL ONE (01:48)
[2021-03-25] MEDS ORDERED: TETANUS,DIPTH,PERTUSS P/F (BOOSTRIX) 0.5 ML VIAL IM ONE (01:52)
[2021-03-25] MEDS ORDERED: MUPI22OI2 TP (02:03)
[2021-03-25] MEDS ORDERED: SULF1TAB38 PO (02:03)
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
[2021-03-25] MEDS ORDERED: RX-TRIMETH/SULFA. 160-800 MG (BACTRIM DS) TAB PPK#2 PO STA (02:04)
== END 2021-03-25 02:12 | disposition home or self-care (01) ==
LOC: EDUNIT# 01:22 → ER 01:25
DX: S60.452A Superficial foreign body of right middle finger, initial encounter (principal); U07.1 COVID-19; J45.909 Unspecified asthma, uncomplicated; F17.210 Nicotine dependence, cigarettes, uncomplicated; Z23 Encounter for immunization; W45.8XXA Other foreign body or object entering through skin, initial encounter
CPT/HCPCS: 90715

== ENCOUNTER 2022-02-22 09:21 | Emergency (ER) | payer SELFPAY ==
[~2022-02-22] VITALS: Ht 157 cm; Wt 77.0 kg
[~2022-02-22 09:21] MED LIST changes: +CLIN-144 PO; -CLIN300C12 PO; -DOXY100C2 PO; +DOXY100C5 PO
[2022-02-22 09:50] LABS: BILIRUBIN,URINE NEGATIVE (NEGATIVE); CLARITY,URINE SL CLOUDY; COLOR,URINE YELLOW; GLUCOSE, URINE (UA) NEGATIVE (NEGATIVE); KETONES,URINE NEGATIVE (NEGATIVE); LEUKOCYTE ESTERASE ,URINE NEGATIVE (NEGATIVE); NITRITE,URINE NEGATIVE (NEGATIVE); PROTEIN,URINE TRACE (NEGATIVE)
[2022-02-22 10:02] LABS: BACTERIA,URINE MODERATE /HPF; RBC,URINE >100 /HPF; SQUAMOUS EPITHELIAL CELL,UR 25-50 /HPF
[2022-02-22] MEDS ORDERED: fentaNYL INJ 100 MCG/2 ML AMP IVP ONE (10:30)
[2022-02-22 10:37] LABS: BASOPHILS # (AUTO) 0.1 10^3/uL (0.0-0.1); BASOPHILS % (AUTO) 1 % (0-10); EOSINOPHILS # (AUTO) 0.2 10^3/uL (0.0-0.3); EOSINOPHILS % (AUTO) 3 % (0-10); HEMATOCRIT 39 % (35-52); HEMOGLOBIN 13.2 g/dL (11.5-16.0); LYMPHOCYTES # (AUTO) 2.2 10^3/uL (1.0-4.0); LYMPHOCYTES % (AUTO) 30 % (12-44); MEAN CORPUSCULAR HEMOGLOBIN 32 pg (25-34); MEAN CORPUSCULAR HGB CONC 34 g/dL (32-36); MEAN CORPUSCULAR VOLUME 96 fL (80-99); MEAN PLATELET VOLUME 9.5 fL (9.0-12.2); MONOCYTES # (AUTO) 0.6 10^3/uL (0.0-1.0); MONOCYTES % (AUTO) 8 % (0-12); NEUTROPHILS # (AUTO) 4.1 10^3/uL (1.8-7.8); NEUTROPHILS % (AUTO) 57 % (42-75); PLATELET COUNT 340 10^3/uL (130-400); WHITE BLOOD COUNT 7.1 10^3/uL (4.3-11.0)
[2022-02-22 10:44] LABS: POTASSIUM 3.7 MMOL/L (3.6-5.0)
[2022-02-22 10:45] LABS: CALCIUM 8.7 MG/DL (8.5-10.1)
[2022-02-22 10:46] LABS: TOTAL PROTEIN 6.6 GM/DL (6.4-8.2)
[2022-02-22 10:48] LABS: BILIRUBIN,TOTAL 0.3 MG/DL (0.1-1.0)
[2022-02-22 10:50] LABS: CREATININE SERUM 1.19 MG/DL (0.60-1.30)
[2022-02-22] MEDS ORDERED: LACTATED RINGERS 1,000 ML IV ONE (11:15)
--- NOTE | 2022-02-22 11:52 | Diagnostic Imaging Report ---
PROCEDURE: CT urinary tract, rule out kidney stone. TECHNIQUE: Multiple contiguous axial images were obtained through the abdomen and pelvis without the use of intravenous contrast. Auto Exposure Controls were utilized during the CT exam to meet ALARA standards for radiation dose reduction. INDICATION: Right-sided flank pain. COMPARISON: CT dated 02/21/2019. FINDINGS: Included portions of the lung bases are clear. CT ABDOMEN: There is mild asymmetric right-sided hydroureteronephrosis and edematous change to the right renal parenchyma. The ureters are difficult to follow in a contiguous fashion, but there is a calculus posterior to the right urinary bladder in the expected location of the distal right ureter. This was not present on previous CT dated 02/21/2019 and is felt to represent small calculus within the distal right ureter. There is no hydroureteronephrosis or other evidence of obstruction on the left. The adrenal glands, spleen, pancreas, and liver have an unremarkable noncontrast CT appearance. Small bowel loops are nondistended. Normal appendix is identified. There is no loculated fluid collection, free fluid, or free air within the abdomen. No abnormal mesenteric or retroperitoneal adenopathy is seen. Osseous structures show no acute abnormalities. CT PELVIS: Urinary bladder is unopacified. Again, there does appear to be small calculus within the distal right ureter. Trace amount of free fluid is also present within the pelvis. There is no loculated fluid collection or free air. No abnormal pelvic adenopathy is seen. Osseous structures show no acute abnormalities. IMPRESSION: 1. Mild right-sided hydroureteronephrosis, which is felt to be related to a 2 to 3 mm calculus within the distal right ureter. 2. Small amount of free fluid within the pelvis; possibly physiologic. Dictated by: Dictated on workstation # [id number]
[2022-02-22] MEDS ORDERED: KETOROLAC 30 MG/ML VIAL IVP ONE (12:00)
[2022-02-22] MEDS ORDERED: ONDA4TAB11 SL (12:30)
[2022-02-22] MEDS ORDERED: ACHD5005 PO (12:30)
[2022-02-22] MEDS ORDERED: CEPH500T PO (12:30)
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
--- NOTE | 2022-02-22 12:46 | Diagnostic Imaging Report ---
INDICATION: Abdominal pain. COMPARISON: Correlation is made with CT study performed earlier the same day. TIME OF EXAM: 12:24 p.m. FINDINGS: Single view of the abdomen does show a tiny calcific density in the right pelvis, correlating with the distal right ureteric calculus noted on CT. No other urinary tract calculi are seen. Bowel gas pattern is unremarkable. There is no free air. IMPRESSION: Distal right ureteric calculus. Dictated by: Dictated on workstation # [id number]
[2022-02-22 12:55] VITALS: BP 115/90
== END 2022-02-22 12:55 | disposition home or self-care (01) ==
LOC: EDUNIT# 09:21 → ER 09:23
DX: N20.1 Calculus of ureter (principal); Z28.310 Unvaccinated for COVID-19; Z32.02 Encounter for pregnancy test, result negative
CPT/HCPCS: 36415; 74018; 74176; 80053; 81000; 84703; 85025; 86141; 87077; 87088

== ENCOUNTER 2022-05-28 00:16 | Emergency (ER) | payer OTHER ==
[~2022-05-28 00:16] MED LIST changes: +CEPH500T PO; +METR375C PO; +ONDA4TAB11 SL
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
[2022-05-28 01:26] VITALS: BP 132/99
--- NOTE | 2022-05-28 07:34 | Diagnostic Imaging Report ---
Indication: Right hand pain AP, oblique, and lateral views of the right hand are obtained. No fracture or acute bony abnormality is seen. Joint spaces are unremarkable. IMPRESSION: Negative right hand. Dictated by: Dictated on workstation # [id number]
== END 2022-05-28 01:30 ==
LOC: EDUNIT# 00:16 → ER 00:20
DX: S60.021A Contusion of right index finger without damage to nail, initial encounter (principal); S60.051A Contusion of right little finger without damage to nail, initial encounter; S60.031A Contusion of right middle finger without damage to nail, initial encounter; S60.041A Contusion of right ring finger without damage to nail, initial encounter; S60.011A Contusion of right thumb without damage to nail, initial encounter; F17.210 Nicotine dependence, cigarettes, uncomplicated; Z20.822 Contact with and (suspected) exposure to COVID-19; Z28.310 Unvaccinated for COVID-19; Y04.0XXA Assault by unarmed brawl or fight, initial encounter; Y92.149 Unspecified place in prison as the place of occurrence of the external cause
CPT/HCPCS: 73130; 87636